=== PATIENT | female | born 1995 | race Caucasian/White ===

== ENCOUNTER 2017-02-08 13:43 | Emergency (ER) | payer MEDICAID, OTHER ==
[~2017-02-08] VITALS: Ht 149.9 cm; Wt 69.5 kg
[~2017-02-08 13:43] MED LIST: LEVE500T8 PO
[2017-02-08 15:18] VITALS: BP 122/84
== END 2017-02-08 15:26 | disposition home or self-care (01) ==
LOC: EMS 13:43
DX: S46.001A Unspecified injury of muscle(s) and tendon(s) of the rotator cuff of right shoulder, initial encounter (principal); G40.909 Epilepsy, unspecified, not intractable, without status epilepticus; X58.XXXA Exposure to other specified factors, initial encounter; Y93.89 Activity, other specified; Y92.810 Car as the place of occurrence of the external cause; Y99.8 Other external cause status
CPT/HCPCS: 99281; 99282

== ENCOUNTER 2017-05-10 09:24 | Emergency (ER) | payer OTHER ==
[~2017-05-10] VITALS: Ht 149.9 cm; Wt 72.7 kg
[2017-05-10 11:37] VITALS: BP 118/80
== END 2017-05-10 11:55 | disposition home or self-care (01) ==
LOC: EMS 09:26
DX: S93.402A Sprain of unspecified ligament of left ankle, initial encounter (principal); X50.0XXA Overexertion from strenuous movement or load, initial encounter; Y93.89 Activity, other specified; Y92.89 Other specified places as the place of occurrence of the external cause; Y99.8 Other external cause status
CPT/HCPCS: 29515; 99284

== ENCOUNTER 2020-02-20 09:58 | Emergency (ER) | payer OTHER ==
[~2020-02-20] VITALS: Ht 147.3 cm; Wt 76.4 kg
[2020-02-20] MEDS ORDERED: LevETIRAcetam 1,000 MG in DEXTROSE 5%-WATER 100 ML IV ONE (10:30)
[2020-02-20] MEDS ORDERED: ACETAMINOPHEN 500 MG TABLET PO ONE (10:30)
[2020-02-20] MEDS ORDERED: ONDANSETRON HCL 4 MG/2 ML VIAL IVP ONE (10:30)
[2020-02-20 10:58] LABS: BASOPHILS % (AUTO) 0.3 % (0.0-2.0); EOSINOPHILS % (AUTO) 0.6 % (1.0-6.0); HEMATOCRIT 39.9 % (36-46); HEMOGLOBIN 13.2 g/dL (12.0-16.0); LYMPHOCYTES # (AUTO) 1.4 K/uL (1.0-4.8); LYMPHOCYTES % (AUTO) 16.2 % (22.0-44.0); MEAN CORPUSCULAR HEMOGLOBIN 28.9 pg (26.0-34.0); MEAN CORPUSCULAR HGB CONC 33.2 G/dL (31.0-37.0); MEAN CORPUSCULAR VOLUME 87 fL (80-100); MONOCYTES # (AUTO) 0.5 K/uL (0.1-1.0); MONOCYTES % (AUTO) 5.7 % (2.0-9.0); NEUTROPHILS # (AUTO) 6.7 K/uL (1.8-7.7); NEUTROPHILS % (AUTO) 77.2 % (40.0-70.0); PLATELET COUNT (AUTO) 326 K/uL (150-450); RED BLOOD CELL COUNT(AUTO) 4.58 MIL/uL (4.00-5.20); RED CELL DISTRIBUTION WIDTH 13.2 % (11.5-14.5)
[2020-02-20 11:11] LABS: ANION GAP 4 mmol/L (8-16); CALCIUM, TOTAL 8.8 mg/dL (8.8-10.5); CARBON DIOXIDE 27 mmol/L (22-29); CHLORIDE 104 mmol/L (98-107); CREATININE 0.68 mg/dL (0.60-1.30); GLOMERULAR FILTR. RATE CALC > 60 mL/min (>60); GLUCOSE,RANDOM 98 mg/dL (70-110); POTASSIUM 3.9 mmol/L (3.5-5.1); SODIUM SERUM 135 mmol/L (136-145); UREA NITROGEN, BLOOD 11 mg/dL (7-18)
[2020-02-20 11:16] LABS: ALANINE AMINOTRANSFERASE 22 U/L (12-78); ALBUMIN 3.7 g/dL (3.4-5.0); ALKALINE PHOSPHATASE 57 U/L (46-116); ASPARTATE AMINOTRANSFERASE 13 U/L (15-37); BILIRUBIN,TOTAL 0.2 mg/dL (0.1-1.0); HCG,QUANTITATIVE 1 mIU/mL (0-6); TOTAL PROTEIN, SERUM 7.6 g/dL (6.4-8.2)
[2020-02-20 12:09] VITALS: BP 122/80
== END 2020-02-20 12:10 | disposition home or self-care (01) ==
LOC: EMS 10:00
DX: R56.9 Unspecified convulsions (principal); R51.9 Headache, unspecified; R11.0 Nausea; F12.90 Cannabis use, unspecified, uncomplicated
CPT/HCPCS: 36415; 80053; 84702; 85025; 96374; 96375; 99284; J0712; J2405; J7060

== ENCOUNTER 2020-03-29 18:20 | Emergency (ER) | payer OTHER ==
[~2020-03-29] VITALS: Ht 149.9 cm; Wt 74.1 kg
[2020-03-29] MEDS ORDERED: LEVE500T53 PO (18:34)
[2020-03-29 18:36] VITALS: BP 126/75
[2020-03-29 21:04] LABS: COVID AG,FIA SOURCE NASOPHARYNGEAL
== END 2020-03-29 20:41 | disposition home or self-care (01) ==
LOC: EMS 18:20
DX: R51.9 Headache, unspecified (principal); M79.10 Myalgia, unspecified site; R53.81 Other malaise; F12.90 Cannabis use, unspecified, uncomplicated; Z20.822 Contact with and (suspected) exposure to COVID-19
CPT/HCPCS: 87426; 99283; C9803; U0003

== ENCOUNTER 2020-10-06 12:16 | Emergency (ER) | payer OTHER ==
[~2020-10-06] VITALS: Ht 152.4 cm; Wt 72.7 kg
[~2020-10-06 12:16] MED LIST changes: +LEVE500T53 PO; -LEVE500T8 PO
[2020-10-06 15:16] VITALS: BP 140/93
== END 2020-10-06 16:10 | disposition home or self-care (01) ==
LOC: EMS 12:16
DX: M25.571 Pain in right ankle and joints of right foot (principal); R60.0 Localized edema; F12.90 Cannabis use, unspecified, uncomplicated
CPT/HCPCS: 29515; 99284; 73610-TC; 73630-TC; Z7502

== ENCOUNTER 2021-03-10 16:20 | Emergency (ER) | payer OTHER ==
[~2021-03-10] VITALS: Ht 149.9 cm; Wt 75.0 kg
[~2021-03-10 16:20] MED LIST changes: +LEVE500T20 PO; -LEVE500T53 PO
[2021-03-10] MEDS ORDERED: ACETAMINOPHEN 500 MG TABLET PO ONE (18:15)
[2021-03-10 18:18] VITALS: BP 143/60
[2021-03-10 18:18] LABS: COVID AG,FIA SOURCE NASOPHARYNGEAL
== END 2021-03-10 18:53 | disposition home or self-care (01) ==
LOC: EMS 16:21
DX: R53.81 Other malaise (principal); R51.9 Headache, unspecified; F12.90 Cannabis use, unspecified, uncomplicated; Z20.822 Contact with and (suspected) exposure to COVID-19; Z79.899 Other long term (current) drug therapy
CPT/HCPCS: 87426; 99283; U0003

== ENCOUNTER 2021-04-09 12:51 | Emergency (ER) | payer MEDICARE, OTHER ==
[~2021-04-09] VITALS: Ht 149.9 cm; Wt 75.0 kg
[2021-04-09 13:47] VITALS: BP 128/82
[2021-04-09 15:18] LABS: COVID AG,FIA SOURCE NASOPHARYNGEAL
== END 2021-04-09 16:00 | disposition left against medical advice (07) ==
LOC: EMS 13:08
DX: J02.9 Acute pharyngitis, unspecified (principal); F12.90 Cannabis use, unspecified, uncomplicated; Z20.822 Contact with and (suspected) exposure to COVID-19
CPT/HCPCS: 99283

== ENCOUNTER 2021-04-19 14:50 | Emergency (ER) | payer MEDICARE ==
[~2021-04-19] VITALS: Ht 149.9 cm; Wt 72.7 kg
[2021-04-19 16:31] VITALS: BP 132/66
[2021-04-19 23:13] LABS: COVID AG,FIA SOURCE NASAL SWAB
== END 2021-04-19 17:40 | disposition home or self-care (01) ==
LOC: EMS 14:58
DX: U07.1 COVID-19 (principal); F12.90 Cannabis use, unspecified, uncomplicated; Z79.899 Other long term (current) drug therapy
CPT/HCPCS: 87426; 99283; C9803; U0003

== ENCOUNTER 2022-02-15 04:38 | Emergency (ER) | payer MEDICARE ==
[~2022-02-15] VITALS: Ht 149.9 cm; Wt 77.7 kg
[2022-02-15 05:00] VITALS: BP 120/39
== END 2022-02-15 05:36 | disposition left against medical advice (07) ==
LOC: EMS 04:38
DX: R05.9 Cough, unspecified (principal); Z53.21 Procedure and treatment not carried out due to patient leaving prior to being seen by health care provider

== ENCOUNTER 2022-02-15 07:26 | Emergency (ER) | payer MEDICARE ==
[~2022-02-15] VITALS: Ht 157.5 cm; Wt 72.7 kg
[2022-02-15 08:21] LABS: COVID AG,FIA SOURCE NASAL SWAB
[2022-02-15 08:56] LABS: INFLUENZA TYPE B NEGATIVE FOR TYPE B (NEGATIVE)
[2022-02-15 08:57] LABS: INFLUENZA TYPE A POSITIVE FOR TYPE A (NEGATIVE)
[2022-02-15 11:47] VITALS: BP 132/73
== END 2022-02-15 13:25 | disposition left against medical advice (07) ==
LOC: EMS 07:29
DX: J02.9 Acute pharyngitis, unspecified (principal); Z53.21 Procedure and treatment not carried out due to patient leaving prior to being seen by health care provider
CPT/HCPCS: 87804

== ENCOUNTER 2023-06-26 12:14 | Emergency (ER) | payer OTHER, MEDICARE ==
[~2023-06-26] VITALS: Ht 149.9 cm; Wt 77.3 kg
[2023-06-26 12:51] VITALS: BP 119/74; PULSE 75; RESP 18; TEMP 98.6
[2023-06-26] MEDS ORDERED: IBUP-1492 PO (14:48)
== END 2023-06-26 14:55 | disposition home or self-care (01) ==
LOC: EMS 12:45
DX: M25.561 Pain in right knee (principal); Z98.890 Other specified postprocedural states
CPT/HCPCS: 29505; 99283

== ENCOUNTER → 2023-12-11 | Emergency (ER) | payer SELFPAY ==
[~2023-12-11] VITALS: Ht 149.9 cm; Wt 72.7 kg
[~2023-12-11] MED LIST changes: +IBUP-1492 PO; +LEVE-71 PO; -LEVE500T20 PO
[2023-12-11 13:06] VITALS: BP 110/73; PULSE 88; RESP 18; TEMP 98.3; O2SAT 93
[2023-12-11] MEDS: METHOCARBAMOL 500 MG TABLET PO ONE (14:15)
[2023-12-11] MEDS: LIDOCAINE 5% TRANSDERMAL PATCH TD ONE (14:15)
[2023-12-11] MEDS: KETOROLAC TROMETHAMINE 30 MG/ML VIAL IM ONE (14:15)
== END | disposition still patient (30) ==
LOC: EMS 13:00
DX: M54.50 Low back pain, unspecified (principal); Z98.890 Other specified postprocedural states
CPT/HCPCS: 99283; 96372; J1885